=== PATIENT | female | born 1950 | race Caucasian/White ===

== ENCOUNTER 2021-10-11 09:32 | Day surgery (SDC) | payer MEDICARE, BC ==
[~2021-10-11 09:32] MED LIST: Midazolam 1 MG/ML 2 ML SDV ONE; Propofol 200 MG/20 ML SDV ONE
[2021-10-11] MEDS ORDERED: Lactated Ringers 1,000 ML IV SCH (09:45)
[2021-10-11] MEDS ORDERED: Sodium Chloride 0.9% 10 ML Syringe FLUSH PRN (09:45)
--- NOTE | 2021-10-11 11:20 | PCM.PN ---
- General Info Date of Service: 10/11/21 - Review of Systems Systems Review Comment:: 71-year-old female referred for colonoscopy. She was noted to have a positive Cologuard test. She is medically stable to proceed today. Her recent history and physical is reviewed and no significant changes are noted. I have discussed the proposed colonoscopy with the patient. Risks such as but not limited to bleeding and GI injury reviewed. She agrees to proceed. - Patient Data Vitals - Most Recent: Last Vital Signs Temp 97.5 F 10/11/21 10:08 Pulse 79 10/11/21 10:08 Resp 18 10/11/21 10:08 BP 143/70 H 10/11/21 10:08 Pulse Ox 97 10/11/21 10:08 Weight - Most Recent: 64.864 kg Med Orders - Current: Current Medications Lactated Ringer's (Ringers, Lactated) 1,000 mls @ 125 mls/hr IV ASDIRECTED ERIK Last Admin: 10/11/21 10:03 Dose: 125 mls/hr Documented by: Sodium Chloride (Sodium Chloride 0.9% 10 Ml Syringe) 10 ml FLUSH ASDIRECTED PRN PRN Reason: Keep Vein Open Discontinued Medications Midazolam HCl (Midazolam 1 Mg/Ml 2 Ml Sdv) Confirm Administered Dose 2 mg .ROUTE .STK-MED ONE Stop: 10/11/21 08:13 Propofol (Propofol 200 Mg/20 Ml Sdv) Confirm Administered Dose 400 mg .ROUTE .STK-MED ONE Stop: 10/11/21 08:13 Sepsis Event Note - Focused Exam Vital Signs: Vital Signs Temp Pulse Resp BP Pulse Ox 10/11/21 10:08 97.5 F 79 18 143/70 H 97 - Problem List Review Problem List Initiated/Reviewed/Updated: Yes - My Orders Last 24 Hours: My Active Orders 10/11/21 09:45 Patient Status [ADT] Routine Peripheral IV Care [RC] . DIRECTED Verify Patient Consent Obtain [RC] ASDIRECTED Lactated Ringers [Ringers, Lactated] 1,000 ml IV ASDIRECTED Sodium Chloride 0.9% [Saline Flush] 10 ml FLUSH ASDIRECTED PRN Peripheral IV Insertion Adult [OM.PC] Routine - Assessment Assessment:: Positive Cologuard - Plan Plan:: Colonoscopy
[2021-10-11] MEDS ORDERED: Propofol 200 MG/20 ML SDV ONE (11:25)
[2021-10-11] MEDS ORDERED: Midazolam 1 MG/ML 2 ML SDV ONE (11:25)
--- NOTE | 2021-10-11 11:58 | PCM.OPNOTE ---
- General Post-Op/Procedure Note Date of Surgery/Procedure: 10/11/21 Operative Procedure(s): Colonoscopy with polypectomy Findings: Small cecal polyp Extensive sigmoid diverticulosis Pre Op Diagnosis: Positive Cologuard Post-Op Diagnosis: Colon polyp. Sigmoid diverticulosis Anesthesia Technique: MAC Primary Surgeon: Alfredo Mendosa Pathology: Colon Polyp EBL in mLs: 1 Complications: None Condition: Good
--- NOTE | 2021-10-11 14:16 | OR ---
Date of Procedure: 10/11/2021 PREOPERATIVE DIAGNOSIS: Positive Cologuard. POSTOPERATIVE DIAGNOSES: Colon polyp, sigmoid diverticulosis. OPERATIONS PERFORMED: Colonoscopy with polypectomy. INDICATIONS FOR SURGERY: This 71-year-old female was recently noted to have a positive Cologuard test. It has been several years since her last colonoscopy and she comes for this exam. FINDINGS: A single small polyp was noted in the cecum. This is 5 mm in size and sessile in configuration. The patient also has extensive diverticulosis of the left colon, although this does not appear to be acutely inflamed, or otherwise, complicated. The colon, otherwise, appears normal. DESCRIPTION OF PROCEDURE: The patient was taken to the operating room. She was given intravenous sedation, and with her in the left lateral decubitus position, digital rectal exam was performed showing no rectal masses. The Olympus colonoscope was inserted into the rectum and careful examination of the rectum was carried out. The scope was then carefully advanced under direct visualization through the entire length of the colon until cecum was reached. Cecal acquisition was confirmed by noting the normal internal cecal anatomy including the appendiceal orifice and the ileocecal valve. The ileocecal valve was cannulated and the terminal ileum also examined and appeared normal. In the cecum, the above-described polyp was identified. This was removed in its entirety with multiple bites of the biopsy forceps. After carefully examining the cecum, the scope was slowly withdrawn sequentially re-examining the colonic segments until the entire colon and rectum had been fully examined. The scope was removed and the patient was taken from the operating room in satisfactory condition. ESTIMATED BLOOD LOSS: 1 mL. COMPLICATIONS: None. PROGNOSIS: Good. DOMINIQUE Mendosa MD /[id number]
[2021-10-11 16:55] VITALS: BP 117/67; PULSE 68
== END 2021-10-11 12:46 | disposition home or self-care (01) ==
LOC: LL.SDS 09:32
PROVIDERS: ATTEND Surgery
DX: D12.0 Benign neoplasm of cecum (principal); K57.30 Diverticulosis of large intestine without perforation or abscess without bleeding; I10 Essential (primary) hypertension; E55.9 Vitamin D deficiency, unspecified; Z79.82 Long term (current) use of aspirin; Z79.899 Other long term (current) drug therapy
CPT/HCPCS: 00812; 45380; J2250; J2704; J7120

== ENCOUNTER 2021-12-25 19:22 | Emergency (ER) | payer BC, MEDICARE ==
[2021-12-25 19:31] VITALS: PULSE 85
[2021-12-25] MEDS: Acetaminophen 500 MG Tab PO ONE (20:00)
[2021-12-25 20:03] VITALS: BP 157/70
== END 2021-12-25 20:15 | disposition home or self-care (01) ==
LOC: LL.ED 19:22
DX: S80.12XA Contusion of left lower leg, initial encounter (principal); I10 Essential (primary) hypertension; Z79.899 Other long term (current) drug therapy; Z79.82 Long term (current) use of aspirin; W18.30XA Fall on same level, unspecified, initial encounter; Y93.01 Activity, walking, marching and hiking
CPT/HCPCS: 73590-LT; 99283; 99283-25; A9270-GY

== ENCOUNTER 2025-03-22 14:43 | Emergency (ER) | payer BC ==
[2025-03-22] MEDS ORDERED: Sodium Chloride 0.9% 10 ML Syringe FLUSH PRN (14:59)
[2025-03-22 15:04] LABS: BASOPHILS ABSOLUTE AUTO 0.03 K/uL (0.00-0.20); BASOPHILS PERCENT AUTO 0.6 % (0.0-2.0); EOSINOPHILS ABSOLUTE AUTO 0.07 K/uL (0.00-0.50); EOSINOPHILS PERCENT AUTO 1.4 % (0.0-5.0); HEMATOCRIT 40.7 % (34.0-46.0); HEMOGLOBIN 13.7 g/dL (11.7-15.5); LYMPHOCYTES ABSOLUTE AUTO 1.04 K/uL (0.50-3.50); LYMPHOCYTES PERCENT AUTO 21.5 % (10.0-50.0); MEAN CORPUSCULAR HEMOGLOBIN 29.9 pg (28.2-33.3); MEAN CORPUSCULAR HGB CONC 33.7 g/dL (31.7-36.0); MEAN CORPUSCULAR VOLUME 88.9 fL (84.0-98.0); MONOCYTES ABSOLUTE AUTO 0.68 K/uL (0.00-1.00); NEUTROPHILS ABSOLUTE AUTO 3.02 K/uL (1.40-7.00); NEUTROPHILS PERCENT AUTO 62.5 % (45.0-80.0); PLATELET COUNT,PLT 204 K/uL (150-350); RED BLOOD CELL COUNT 4.58 M/uL (3.77-5.09); RED CELL DISTRIBUTION WIDTH 13.4 % (11.2-14.1); WHITE BLOOD CELL COUNT,WBC 4.8 K/uL (4.0-10.2)
[2025-03-22 15:14] LABS: INR 1.1 (0.9-1.1); PROTHROMBIN TIME 11.4 SEC (9.0-11.1)
[2025-03-22] MEDS: Aspirin 81 MG Tab.Chew ONE (15:19)
[2025-03-22] MEDS: Lactated Ringers 1,000 ML IV SCH (15:19)
[2025-03-22] MEDS ORDERED: Diltiazem 25 MG/5 ML SDV IVPUSH ONE (15:19)
[2025-03-22] MEDS: Aspirin 81 MG Tab.Chew PO ONE (15:19)
[2025-03-22 15:20] LABS: ALBUMIN 4.2 g/dL (3.4-5.0); ANION GAP 8.3 meq/L (7-15); BILIRUBIN TOTAL 0.7 mg/dL (0.2-1.0); CALCIUM 9.7 mg/dL (8.5-10.1); CARBON DIOXIDE,CO2 25.7 mmol/L (21.0-32.0); CREATININE 0.95 mg/dL (0.51-1.17); EST CRCL DRUG DOSING (CG) 39.85 mL/min; MAGNESIUM 1.8 mg/dL (1.8-2.4); POTASSIUM,K 4.9 mmol/L (3.5-5.1)
[2025-03-22] MEDS: Diltiazem 25 MG/5 ML SDV IVPUSH ONE (15:23)
[2025-03-22] MEDS: Apixaban 5 MG Tab PO ONE (15:59)
[2025-03-22] MEDS: Diltiazem IR 60 MG Tab PO ONE (17:01)
[2025-03-22 18:07] VITALS: BP 147/89; PULSE 89
== END 2025-03-22 17:55 | disposition home or self-care (01) ==
LOC: LL.ED 14:43
DX: I48.91 Unspecified atrial fibrillation (principal); Z79.01 Long term (current) use of anticoagulants; Z79.899 Other long term (current) drug therapy
CPT/HCPCS: 36415; 71045; 80053; 83735; 84484; 85025; 85610; 93005; 93010; 96361; 96374; 99284; 99285-25; A9270-GY; J3490; J7120

== ENCOUNTER 2025-04-19 13:43 | Emergency (ER) | payer BC ==
[2025-04-19] MEDS: Lidocaine 1% 5 ML VIAL INJECT ONE (14:46)
[2025-04-19] MEDS: Bacitracin Oint 1 GM U/D Packet TOP ONE (14:46)
[2025-04-19 14:47] VITALS: BP 145/79; PULSE 98
== END 2025-04-19 15:25 | disposition home or self-care (01) ==
LOC: LL.ED 13:43
DX: S61.411A Laceration without foreign body of right hand, initial encounter (principal); W19.XXXA Unspecified fall, initial encounter
CPT/HCPCS: 12002; 99282; 99283; J2003